=== PATIENT | male | born 1970 ===

== ENCOUNTER 2018-07-24 05:12 | Observation (INO) | payer MEDICARE, OTHER ==
[~2018-07-24] VITALS: Ht 182.9 cm; Wt 165.0 kg
[2018-07-24 05:54] LABS: BASOPHILS ABSOLUTE AUTO 0.04 K/mm3 (0.00-0.23); BASOPHILS PERCENT AUTO 0 % (0-2); EOSINOPHILS ABSOLUTE AUTO 0.02 K/mm3 (0.00-0.68); EOSINOPHILS PERCENT AUTO 0 % (0-6); Hematocrit 44.4 % (37.0-53.0); Hemoglobin 14.5 g/dL (13.5-17.5); IMMATURE GRAN ABSOLUTE AUTO 0.05 K/mm3 (0.00-0.10); IMMATURE GRAN PERCENT AUTO 0 % (0-1); LYMPHOCYTES PERCENT AUTO 9 % (21-46); MONOCYTES ABSOLUTE AUTO 0.58 K/mm3 (0.16-1.47); MONOCYTES PERCENT AUTO 5 % (4-13); Mean Corpuscular HGB 31.8 pg (26.0-34.0); Mean Corpuscular HGB Conc 32.7 g/dL (31.5-36.5); Mean Corpuscular Volume 97 fL (80-100); Mean Platelet Volume 9.8 fL (9.1-12.4); NEUTROPHILS ABSOLUTE AUTO 10.51 K/mm3 (1.96-9.15); NEUTROPHILS PERCENT AUTO 86 % (41-73); Platelet Count 215 K/mm3 (150-400); RDW Coefficient Variation 11.5 % (11.7-14.2); RDW Standard Deviation 41.5 fL (35.1-46.3); Red Blood Cell Count 4.56 M/mm3 (4.30-5.90)
[2018-07-24 06:01] LABS: Source, Urine Catheter
[2018-07-24 06:06] LABS: Bilirubin, Urine Neg (Neg); Blood, Urine 3+ (Neg); Glucose Qualitative, Urine 1+ (Neg); Ketones, Urine Neg (Neg); Leukocyte Esterase, Urine Neg (Neg); Nitrite, Urine Neg (Neg); Protein, Urine 3+ (Neg); Urobilinogen, Urine NORM (Normal); pH, Urine 6.5 (5.0-8.0)
[2018-07-24 06:12] LABS: Appearance, Urine Clear (Clear); Color, Urine Yellow (P-Yellow)
[2018-07-24 06:13] LABS: Red Blood Cells, Urine 0-2 /hpf (0-2); Squamous Epithelial Cells Rare /hpf (Few); White Blood Cells, Urine Rare /hpf (0-5)
[2018-07-24 06:14] LABS: Amorphous Mod (0-Heavy); Bacteria Rare /hpf; Mucus Light (0-Heavy); Spermatozoa Few /hpf
[2018-07-24 06:19] LABS: U Amphetamine Screen Not Detected; U Barbituate Screen Not Detected; U Benzodiazapine Screen Not Detected; U Buprenorphine Screen Not Detected; U Cannabinoids Screen DETECTED; U Cocaine Screen Not Detected; U Methadone Screen Not Detected; U Methamphetamine Screen Not Detected; U Opiates Screen Not Detected; U Oxycodone Screen Not Detected; U Phencyclidine Screen Not Detected; U Propoxyphene Screen Not Detected
[2018-07-24 06:21] LABS: Creatine Kinase MB 3.3 ng/mL (0.0-3.6); Creatine Kinase MB Index 1.2 (0.0-4.0)
[2018-07-24 06:22] LABS: Ethanol (Alcohol), Blood, Med <3 mg/dL; Free Thyroxine 0.86 ng/dL (0.70-1.60); Salicylate <1.7 mg/dL (2.8-20.0)
[2018-07-24 06:23] LABS: Lithium 0.29 mmol/L (0.60-1.20)
[2018-07-24 06:37] LABS: Alanine Aminotransfer (ALT/SGP 26 U/L (12-78); Albumin, Blood 4.8 g/dL (3.4-5.0); Albumin/Globulin Ratio 1.3 (0.8-1.8); Alk Phos 114 U/L (50-136); Anion Gap 20 mmol/L (6-16); Aspartate Aminotrans (AST/SGOT 25 U/L (12-37); Bilirubin, Total 0.3 mg/dL (0.1-1.0); Blood Urea Nitrogen 18 mg/dL (8-24); Bun/Creatinine Ratio 15.1 (12.0-20.0); CO2, Blood 12 mmol/L (21-32); Calcium, Blood 9.2 mg/dL (8.5-10.1); Chloride, Blood 109 mmol/L (98-108); Creatinine, Blood 1.19 mg/dL (0.60-1.20); Globulin, Blood 3.7 g/dL (2.2-4.0); Glomerular Filtration Rate >60 (60-); Glucose, Blood 189 mg/dL (70-99); Potassium, Blood 3.4 mmol/L (3.5-5.5); Sodium, Blood 141 mmol/L (136-145); Total Protein, Blood 8.5 g/dL (6.4-8.2)
[2018-07-24 06:42] LABS: Acetaminophen, Random <2.0 ug/mL (10.0-30.0)
[2018-07-24 18:25] LABS: Calcium, Ionized (POC) 1.18 mmol/L (1.10-1.46); Chloride (POC) 107 mmol/L (98-108); Creatinine (POC) 1.1 mg/dL (0.8-1.3); Glucose (ISTAT POC) 212 mg/dL (70-99); Hemoglobin (POC) 12.9 g/dL (13.5-17.5); Potassium (POC) 3.4 mmol/L (3.5-5.5); Sodium (POC) 143 mmol/L (135-148); Total CO2 (POC) 21 mmol/L (21-32)
[2018-07-25] MEDS ORDERED: GABA300 PO (20:32)
[2018-07-25] MEDS ORDERED: IBUP400 PO (20:33)
[2018-07-25] MEDS ORDERED: LITH300C PO (20:33)
[2018-07-25] MEDS ORDERED: TRAZ100 PO (20:34)
[2018-07-25] MEDS ORDERED: OMEPRAZOLE MAGN20 MG PO (23:00)
[2018-07-27 12:53] LABS: Lithium 0.61 mmol/L (0.60-1.20)
== END 2018-07-28 04:51 | disposition home or self-care (01) ==
LOC: ER 05:12 → EOR 05:13
PROVIDERS: Psychiatry & Neurology Psychiatry; ADMIT Emergency Medicine
DX: F31.9 Bipolar disorder, unspecified (principal); R73.9 Hyperglycemia, unspecified; F15.10 Other stimulant abuse, uncomplicated
CPT/HCPCS: 36415; 51701; 70450; 80047; 80053; 80178; 81001; 82550; 82553; 84439; 84443; 85014; 85025; 90471; 90714; 93005; 93010; 96360-59; 96372-59; 99285-25; G0378; G0480; J1200; J1630; J2060; J7030; Q0163